=== PATIENT | male | born 1980 | race Caucasian/White ===

== ENCOUNTER 2025-09-09 10:40 | Emergency (ER) | payer MEDICARE, MEDICAID, SELFPAY ==
[2025-09-09 10:49] VITALS: BP 147/74; PULSE 74; RESP 16; TEMP 36.5; O2SAT 98
[2025-09-09 11:11] VITALS: BP 147/74; PULSE 74; RESP 16; TEMP 36.5; O2SAT 98
--- NOTE | 2025-09-09 11:15 | RT.EKG_ITS ---
APPROVED REPORT Exam: Resting ECG Reason for Exam: episodes of lightheadedness/presyncope with standi Patient Location: E HR:62 bpm ECG Measurements Heart Rate 62 AXIS WV 142 P 60 QRSd 82 QRS 72 QT 409 T 52 QTc 416 Conclusion Sinus rhythm...normal P axis, V-rate 60- 99 No Occlusion WI
--- NOTE | 2025-09-09 11:32 | W.ED.GENAD ---
Discharge Plan Disposition Patient Disposition: Against Medical Advice Condition: Stable Discharge Details Clinical Impression: CAP (community acquired pneumonia), Gastroenteritis Primary Care Provider: None,None ED Provider: Raquel Jones Home Meds and New Rx's Prescriptions: New azithromycin 250 mg tablet 250 mg PO DAILY 4 Days Qty: 4 0RF Rx Instructions: start on day 2 of therapy No Action trazodone 150 mg tablet 150 mg PO QHS PRN lithium carbonate 300 mg capsule 900 mg PO QHS Patient Comments: 300 mg in am sertraline [Zoloft] 100 mg tablet 100 mg PO DAILY lurasidone [Latuda] 120 mg tablet 120 mg PO DAILY Rx Instructions: must administer with food (at least 350 calories) quetiapine [Seroquel] 200 mg tablet 200 mg PO ONCE HS Rx Instructions: administer on day 3 of therapy Discharge Instructions Additional Instructions: A referral has been placed to help you establish care with a primary care provider. Please follow-up with care management who will be calling you to set up an appointment. You have decided to leave AGAINST MEDICAL ADVICE. It is strongly recommended that you stay in the emergency department to pursue further workup, including CT scan of your chest/abdomen/pelvis to rule out intestinal disorders or pneumonia. There is concern that you may have pneumonia on chest x-ray. Will treat you with azithromycin. Please take the full course as prescribed. You may use the Tessalon Perles for cough 1 tablet every 8 hours as needed. You may also use the albuterol inhaler provide 2 puffs every 4-6 hours if you experience any wheezing. It is very important you stay well-hydrated, drinking plenty of electrolyte rich fluids and eating gentle foods while you have nausea/vomiting. Continue taking your medications as prescribed. Please note that you may return to emergency care at any time to finish workup or if you have any new/concerning symptoms or would like to be checked out again, including difficulty breathing, new chest pains, episodes of passing out, uncontrollable vomiting, persistent blood in your vomit or stool, abdominal pain, or if you are very worried and need to be rechecked again immediately Stand Alone Forms: Portal Information Referrals: Care Management [Provider Group] HPI General Date/Time Provider Initiated Documentation: 09/09/25 10:44. HPI Narrative: Juan is a 44-year-old male who presents to the emergency department today for evaluation of feeling generally unwell. He reports that URI symptoms started a couple of weeks ago, he has had a persistent cough productive of greenish sputum and chest pain with deep inspiration for the last couple of days. He also reports lower abdominal stabbing pain x 1 week. A couple of days ago developed nausea/vomiting with diarrhea, reports forceful vomiting with occasional streaks of blood in it that he attributes to forceful retching. Yesterday developed dizziness with standing up and feeling like he is going to pass out. Early this morning he developed fever of 102 which responded well to ibuprofen. Denies vision changes, chest pain other than with inspiration, blood in urine or stool. Does admit to decreased urine output, says that he has not had trouble staying well-hydrated. Says he has been unable to take his psych meds due to persistent nausea and vomiting. Denies significant past medical history such as IV drug use, lung disease, heart disease, liver or kidney dysfunction. PMH significant for bipolar disorder, schizoaffective disorder, PTSD, HLD. Related Data Home Medications ?Medication ?Instructions ?Recorded ?Confirmed azithromycin 250 mg tablet 250 mg PO DAILY 4 days #4 tabs 09/09/25 lithium carbonate 300 mg capsule 900 mg PO QHS 09/09/25 09/09/25 lurasidone 120 mg tablet (Latuda) 120 mg PO DAILY 09/09/25 09/09/25 quetiapine 200 mg tablet (Seroquel) 200 mg PO ONCE HS 09/09/25 09/09/25 sertraline 100 mg tablet (Zoloft) 100 mg PO DAILY 09/09/25 09/09/25 trazodone 150 mg tablet 150 mg PO QHS PRN 09/09/25 09/09/25 Previous Rx's ?Medication ?Instructions ?Recorded azithromycin 250 mg tablet 250 mg PO DAILY 4 days #4 tabs 09/09/25 Allergies Allergy/AdvReac Type Severity Reaction Status Date / Time Penicillins Allergy Severe Anaphylaxis Verified 09/09/25 11:12 General Stated Complaint: GenMedical SARA: 4 Exam Const General: cooperative and comfortable Nutritional Appearance: thin Orientation: alert and oriented x3 HENMT Head: normal to inspection and normocephalic Ears: hearing grossly normal bilaterally General nose exam: external nose normal Face and sinus: normal facial exam and dry mucous membranes (slightly tacky) Resp Effort & Inspection: normal respiratory effort and cough Quality of cough: actively coughing Auscultation: rales Cardio Jugular venous pressure: no JVD Rate: regular rate Rhythm: regular rhythm GI Inspection: normal to inspection and non-distended Palpation: soft, not firm, no guarding and tender in the LLQ, in the RLQ and suprapubicly Back/Spine/Pelvis Back: no CVA tenderness Cervical Spine: normal cervical lordosis, cervical ROM normal, No pain with cervical ROM, No cervical spinal tenderness and No step off deformity Neuro General: patient alert, patient oriented x3, gait normal, tone normal, moves all extremities and no focal motor deficits Cranial Nerves: facial strength normal Cognition: normal cognition Speech: speech normal Motor: muscle tone normal throughout Extrem General: normal to inspection and no pedal edema Course Vital Signs Vital signs: Vital Signs Temperature 36.5 C 09/09/25 10:49 Pulse 74 09/09/25 10:49 Respiratory Rate 16 09/09/25 10:49 Blood Pressure 147/74 H 09/09/25 10:49 Pulse Oximetry 98 09/09/25 10:49 Temperature 36.5 C 09/09/25 11:11 Pulse 74 09/09/25 11:11 Respiratory Rate 16 09/09/25 11:11 Blood Pressure 147/74 H 09/09/25 11:11 Pulse Oximetry 98 09/09/25 11:11 Pain Level 6 09/09/25 11:11 Medical Decision Making Juan is a 44-year-old male who presents to the emergency department today for evaluation of feeling generally unwell. He reports that URI symptoms started a couple of weeks ago, he has had a persistent cough productive of greenish sputum and chest pain with deep inspiration for the last couple of days. He also reports lower abdominal stabbing pain x 1 week. A couple of days ago developed nausea/vomiting with diarrhea, reports forceful vomiting with occasional streaks of blood in it that he attributes to forceful retching. Yesterday developed dizziness with standing up and feeling like he is going to pass out. Early this morning he developed fever of 102 which responded well to ibuprofen. Denies vision changes, chest pain other than with inspiration, blood in urine or stool. Does admit to decreased urine output, says that he has not had trouble staying well-hydrated. Says he has been unable to take his psych meds due to persistent nausea and vomiting. Denies significant past medical history such as IV drug use, lung disease, heart disease, liver or kidney dysfunction. Physical exam remarkable for frequent cough with inspiration. Otherwise easy work of breathing. Coarse lung sounds throughout R>L. Normal heart sounds, regular rate and rhythm. Abdomen soft, nondistended, diffusely tender to palpation along the lower abdomen, no rigidity or guarding. Patient is alert and oriented, has slightly tacky mucous membranes. Full painless range of motion of neck. DDx includes but is not limited to: Pneumonia, viral gastroenteritis, other viral illness such as COVID-19 or flu, dehydration, electrolyte imbalance, cardiac arrhythmia, orthostatic hypotension, diverticulitis, UTI. Patient does not meet SIRS criteria. Vital signs reassuring, no hypoxia, tachypnea I independently interpreted the following tests: EKG reassuring, normal sinus rhythm rate 62, normal intervals, no changes consistent with acute ischemia. CBC notable for mild anemia, H&H 11.5/36.8. UA is consistent with dehydration, 10-20 white blood cells also noted with few bacteria, patient denies symptoms consistent with dysuria. CMP, magnesium, lipase all unremarkable. COVID/flu/RSV negative. Chest x-ray was notable for mildly increased markings at the lung nieves, suspicion of subtle infiltrates. In the emergency department Juan received IV fluids, Zofran, and Toradol with good improvement of symptoms, says he is feeling significantly better and has been able to take p.o. without difficulty. Juan is reporting that he is feeling significant better and would like to leave the emergency department, says he is feeling anxious and would like to go home. I did review with him risks associated with leaving, including suspicion for potentially significant intra-abdominal process or pneumonia that would be better visualized on CT scan. He is able to voice rationale, demonstrates medical making capacity. I advised him that he can return at any time. I will treat him with azithromycin for presumed community-acquired pneumonia. He does have a significant allergy to penicillins. A limited course of Tessalon Perles and albuterol inhaler also provided. Reviewed discharge instructions with patient, including red flags indicating need for return to emergency care and the fact that he can return at any time to finish workup. He voices agreement with plan of care, says that he will come back and if he needs to. He does not have a PCP in the area, will provide referral to PCP. Quality:SDOH Health Related Social Needs: Health related social needs inadequate housing risk of homeless food insecurity material hardship house/econ circumstance lonely/isolated Health related social needs details pt has many resources, homeless and advises his stabilized yet severe mental illness has contributes to his life circumstances, however at this time he has many resources already in place. PFSH All Active Problems (Updated 09/09/25 @ 13:17 by Raquel Cantu) Gastroenteritis (Acute) CAP (community acquired pneumonia) (Acute) Social History Smoking/Tobacco Use Status: Unknown Smoking risk assessment performed?: Yes Substance use type: does not use Do you feel safe at home: Yes Do you feel safe in your relationship?: Yes
[2025-09-09 11:51] LABS: COVID-19 PCR Negative (Negative); RSV PCR Negative (Negative)
[2025-09-09 11:51] LABS: Abs Immature Grans 0.14 10^3/uL (0.0-0.06); HCT 36.8 % (40.0-50.0); HGB 11.5 g/dL (13.5-17.5); Immature Grans % 1.3 %; MCH 29.3 pg (27.0-33.0); MCHC 31.3 % (32.0-36.0); MCV 94 fL (80-95); MPV 9.1 fL (8.0-11.0); Platelet Count 567 10^3/uL (130-400); RBC 3.92 10^6/uL (4.36-5.78); RDW 13.9 % (11.8-14.1); RDW-SD 47.8 fL; WBC 10.65 10^3/uL (4.4-10.8)
[2025-09-09 12:10] LABS: Lipase 27 U/L (<53); Magnesium 1.9 mg/dL (1.6-2.6)
[2025-09-09 12:10] LABS: Glucose Negative (Negative)
[2025-09-09 12:12] LABS: ALT 29 U/L (10-49); AST 24 U/L (<34); Albumin 4.0 g/dL (3.2-5.0); Alkaline Phosphatase 69 U/L (46-116); Anion Gap 5.4 mmol/L (3-11); BUN 14 mg/dL (9-23); Bilirubin, Total 0.2 mg/dL (0.2-1.2); CO2 30.6 mmol/L (20.0-31.0); Calcium 8.9 mg/dL (8.3-10.6); Chloride 107 mmol/L (98-107); Glucose 86 mg/dL (74-106); Potassium 3.9 mmol/L (3.5-5.1); Sodium 143 mmol/L (136-145); Total Protein 7.2 g/dL (5.7-8.2)
--- NOTE | 2025-09-09 12:20 | DI.RAD_ITS ---
Exam(s) XR CHEST 2V PA LATERAL EXAM: XR CHEST 2V PA LATERAL CLINICAL HISTORY: CP with productive cough. TECHNIQUE: 2D digital imaging was performed. COMPARISON: No exams were available for comparison FINDINGS: 2 views: Heart size is normal. The mediastinum is not widened. Increased markings in both lungs noted but without air bronchograms nor pleural effusions. No fractures. No pneumothorax. IMPRESSION: Mildly increased markings throughout the lung nieves, slightly more so on the right side. Suspect that there may be subtle infiltrates. Recommend follow-up CT scan. DATA REPOSITORY: RADIATION DOSE DELIVERED:
[2025-09-09 12:21] VITALS: BP 122/58; BP 125/67; BP 147/73; PULSE 54; PULSE 56; PULSE 61
[2025-09-09 12:22] LABS: RBC 0-2 HPF (0-2)
[2025-09-09 12:23] LABS: C & S Indicated? Yes
[2025-09-09] MEDS: Ketorolac 15 MG/ML VIAL IVP (12:30)
[2025-09-09] MEDS: Lactated Ringers 1,000 ML 1000 ML IV (12:30)
[2025-09-09] MEDS: Ondansetron 4 MG/2 ML VIAL IVP (12:30)
[2025-09-09 12:35] VITALS: BP 168/68; PULSE 82; O2SAT 98
[2025-09-09] MEDS: Benzonatate 100 MG CAP PO (13:42)
[2025-09-09] MEDS: Azithromycin 250 MG TAB 500 MG PO (13:42)
[2025-09-09] MEDS: Albuterol HFA 8 GM 60 PUFF INH IH (13:43)
[2025-09-09 13:47] VITALS: BP 139/70; PULSE 75; RESP 18; O2SAT 96
== END 2025-09-09 13:29 | disposition left against medical advice (07) ==
PROVIDERS: Emergency Provider Nurse Practitioner Family
DX: J18.9 Pneumonia, unspecified organism (principal); K52.9 Noninfective gastroenteritis and colitis, unspecified
CPT/HCPCS: 99284; 99285; 96374; 96375; 80053; 83690; 87637; 93005; 96361; 71046; 81003; 81015; 83735; 85025; 87086; 93010; J1885; J2405